=== PATIENT | male | born 2000 | race Caucasian/White ===

== ENCOUNTER 2023-08-05 02:06 | Emergency (ER) | payer OTHER ==
[~2023-08-05] VITALS: Ht 162.6 cm; Wt 69.1 kg
[2023-08-05] MEDS ORDERED: PERIDEX (CHLOR480 ML MM (02:43)
[2023-08-05 03:18] VITALS: BP 127/79; PULSE 92; TEMP 98.4
== END 2023-08-05 03:18 | disposition home or self-care (01) ==
LOC: COL.ER 02:06
DX: S01.512A Laceration without foreign body of oral cavity, initial encounter (principal); W01.0XXA Fall on same level from slipping, tripping and stumbling without subsequent striking against object, initial encounter